=== PATIENT | male | born 1940 | race Caucasian/White ===

== ENCOUNTER 2019-02-11 06:26 | Day surgery (SDC) | payer OTHER ==
[~2019-02-11] VITALS: Ht 177.8 cm; Wt 99.8 kg
[2019-02-11] MEDS ORDERED: LIDOCAINE 2% 100 MG/5 ML UJET TP ONE (07:54)
[2019-02-11] MEDS ORDERED: fentaNYL 0.05 MG/ML VIAL ONE (07:54)
[2019-02-11] MEDS ORDERED: MIDAZOLAM 2 MG/2 ML VIAL ONE ×2 (08:19)
[2019-02-11] MEDS ORDERED: MIDAZOLAM 2 MG/2 ML VIAL IVP ONE (08:24)
[2019-02-11] MEDS ORDERED: fentaNYL 0.05 MG/ML VIAL IVP ONE (08:26)
== END 2019-02-11 09:25 | disposition home or self-care (01) ==
LOC: MDS 06:26 → MMU 06:27 → MDS 09:25
PROVIDERS: ATTEND Internal Medicine Gastroenterology
DX: D50.9 Iron deficiency anemia, unspecified (principal); D12.2 Benign neoplasm of ascending colon; D12.3 Benign neoplasm of transverse colon; D12.5 Benign neoplasm of sigmoid colon; K57.30 Diverticulosis of large intestine without perforation or abscess without bleeding; E66.9 Obesity, unspecified; E11.9 Type 2 diabetes mellitus without complications; E78.5 Hyperlipidemia, unspecified; F17.210 Nicotine dependence, cigarettes, uncomplicated; Z95.1 Presence of aortocoronary bypass graft; Z68.31 Body mass index [BMI] 31.0-31.9, adult; Z79.01 Long term (current) use of anticoagulants; Z79.82 Long term (current) use of aspirin; Z79.899 Other long term (current) drug therapy; Z98.890 Other specified postprocedural states; Z88.8 Allergy status to other drugs, medicaments and biological substances
CPT/HCPCS: 45385; J2250; J3010